=== PATIENT | male | born 1990 | race Two or more races ===

== ENCOUNTER 2022-07-26 08:39 | Emergency (ER) | payer SELFPAY ==
[~2022-07-26] VITALS: Ht 180.3 cm; Wt 108.9 kg
[2022-07-26] MEDS ORDERED: KETOROLAC TROMETHAMINE 15 MG INJ ONE ×2 (08:57→10:54)
[2022-07-26] MEDS ORDERED: KETOROLAC TROMETHAMINE 15 MG INJ IVP ONE ×2 (09:00→10:30)
[2022-07-26] MEDS ORDERED: IV NORMAL SALINE 1000 ML BAG IV ONE (09:00)
[2022-07-26 09:03] LABS: MEAN CORPUSCULAR HEMOGLOBIN 27.2 uug (23.8-33.4); MEAN CORPUSCULAR VOLUME 81.6 fL (73.0-96.2); PLATELET COUNT (AUTO) 371 K/uL (152-348)
[2022-07-26 09:12] LABS: CREATININE 1.1 mg/dL (0.6-1.3); POTASSIUM 3.9 mmol/L (3.5-5.1)
--- NOTE | 2022-07-26 09:14 | NUR ---
Pt to CT via [facility].
[2022-07-26 09:17] LABS: BILIRUBIN,DIRECT 0.1 mg/dL (0.0-0.2); BILIRUBIN,TOTAL 0.4 mg/dL (0.2-1.0); TOTAL PROTEIN, SERUM 7.3 g/dL (6.4-8.2)
[2022-07-26] MEDS ORDERED: HYDROMORPHONE 1 MG/1 ML DISP.SYRIN ONE (09:53)
[2022-07-26] MEDS ORDERED: HYDROMORPHONE 1 MG/1 ML DISP.SYRIN IV ONE ×2 (10:00→10:30)
--- NOTE | 2022-07-26 10:10 | NUR ---
Pt states pain relief with Dilaudid IV, NAD noted at this time, pending CT.
--- NOTE | 2022-07-26 10:35 | NUR ---
Pt medicated with Dilaudid 0.5mg IVP as ordered by . Dilaudid 0.5mg wasted and witnessed by Sheila Mayes RN.
[2022-07-26] MEDS ORDERED: NAPR500T6 PO (12:16)
[2022-07-26] MEDS ORDERED: TAMS-3 PO (12:16)
--- NOTE | 2022-07-26 12:36 | NUR ---
IV removed. Catheter intact and site benign. Pressure and 4x4 gauze applied to site. No bleeding noted.
--- NOTE | 2022-07-26 12:36 | NUR ---
Patient discharged to home in stable condition. Written and verbal after care instructions given. Patient verbalizes understanding of instructions. Stressed follow up or return to ER for worsening s/s.
== END 2022-07-26 12:37 | disposition home or self-care (01) ==
LOC: ER 08:39
DX: N20.1 Calculus of ureter (principal); R10.9 Unspecified abdominal pain; Z90.49 Acquired absence of other specified parts of digestive tract; R94.5 Abnormal results of liver function studies
CPT/HCPCS: 99285; 74176; 96374; 96361; 96375; 80076; 80048; 83690; 85025; 93005; 96376; J1885 ×2; J1170; J7040; A4663

== ENCOUNTER 2022-07-27 09:32 | Emergency (ER) | payer SELFPAY ==
[~2022-07-27 09:32] MED LIST: NAPR500T6 PO; TAMS-3 PO
== END 2022-07-27 10:07 | disposition left against medical advice (07) ==
LOC: ER 09:32
DX: Z53.21 Procedure and treatment not carried out due to patient leaving prior to being seen by health care provider (principal)